=== PATIENT | male | born 1945 | race Caucasian/White ===

== ENCOUNTER 2017-01-04 14:47 | Emergency (ER) | payer MEDICARE, BC ==
--- NOTE | 2017-01-04 14:59 | Emergency Department Record ---
History of Present Illness - General Chief complaint: Dental Stated complaint: JAW PAIN,SWELLING Time Seen by Provider: 01/04/17 14:53 Source: Family ( ), EMS Mode of Arrival: EMS - History of Present Illness Initial comments: patient brought in by EMS and has dental pain. He is scheduled to having an extraction on monday. Dentist is Dr Morgan in [place]. states an oral antibiotic was called in to [facility] today. gave me the history because patient has dementia for 6 years and their primary Dr is Dr. Rocha. states the tooth started to hurt last night. the lower left molar and today he has swelling of the left side of face at the angle of the jaw. PMH hypertension ,RA , Lyme disease MD complaint: Tooth pain - Related Data Home Medications Medication Instructions Recorded Confirmed Last Taken Aspirin [Aspir 81] 81 mg PO DAILY tab 11/09/15 01/04/17 01/03/17 Carvedilol 25 mg PO BID tab 11/09/15 01/04/17 01/04/17 Celecoxib [Celebrex] 200 mg PO DAILY cap 11/09/15 01/04/17 01/04/17 Cholecalciferol (Vitamin D3) 5,000 unit PO DAILY tab 11/09/15 01/04/17 01/03/17 [Vitamin D3] Donepezil HCl [Aricept] 10 mg PO DAILY tab 11/09/15 01/04/17 01/04/17 Duloxetine HCl [Cymbalta] 30 mg PO DAILY cap 11/09/15 01/04/17 01/04/17 Ferrous Sulfate [Iron] 325 mg PO DAILY tab 11/09/15 01/04/17 01/03/17 Losartan Potassium 25 mg PO DAILY tab 11/09/15 01/04/17 01/03/17 Memantine HCl [Namenda] 10 mg PO BID tab 11/09/15 01/04/17 01/04/17 Montelukast Sodium [Singulair] 10 mg PO DAILY tab 11/09/15 01/04/17 01/04/17 Multivitamin [Multi-Vitamin Daily] 1 each PO DAILY tab 11/09/15 01/04/17 Pantoprazole Sodium [Protonix] 40 mg PO BID tab 11/09/15 01/04/17 01/03/17 Hydroxychloroquine Sulfate 200 mg PO BID 01/04/17 01/04/17 01/04/17 [Plaquenil] Allergies Allergy/AdvReac Type Severity Reaction Status Date / Time lisinopril [From Zestril] Allergy PT UNSURE Verified 01/04/17 15:35 OF REACTION Lodine Allergy PT UNSURE Uncoded 01/04/17 15:35 OF REACTION Review of Systems Reviewed: No additional complaints except as noted below Constitutional: Reports: As per HPI. Denies: Chills, Fever, Malaise, Night sweats, Weakness, Weight change Eyes: Reports: As per HPI. Denies: Eye discharge, Eye pain, Photophobia, Vision change ENT: Reports: As per HPI, Dental pain. Denies: Congestion, Ear pain, Epistaxis , Hearing loss, Throat pain Respiratory: Reports: As per HPI. Denies: Cough, Dyspnea, Hemoptysis, Stridor, Wheezes Cardiovascular: Reports: As per HPI. Denies: Arrhythmia, Chest pain, Dyspnea on exertion, Edema, Murmurs, Orthopnea, Palpitations, Paroxysmal nocturnal dyspnea, Rheumatic Fever, Syncope Endocrine: Reports: As per HPI. Denies: Fatigue, Heat or cold intolerance, Polydipsia, Polyuria Gastrointestinal: Reports: As per HPI. Denies: Abdominal pain, Constipation, Diarrhea, Hematemesis, Hematochezia, Melena, Nausea, Vomiting Genitourinary: Reports: As per HPI. Denies: Dysuria, Frequency, Hematuria, Incontinence, Retention, Testicular pain, Testicular mass, Urgency Musculoskeletal: Reports: As per HPI. Denies: Arthralgia, Back pain, Gout, Joint swelling, Myalgia, Neck pain Skin: Reports: As per HPI. Denies: Bruising, Change in color, Change in hair/ nails, Lesions, Pruritus, Rash Neurological: Reports: As per HPI. Denies: Abnormal gait, Confusion, Headache, Numbness, Paresthesias, Seizure, Tingling, Tremors, Vertigo, Weakness Psychiatric: Reports: As per HPI. Denies: Anxiety, Auditory hallucinations, Depression, Homicidal thoughts, Suicidal thoughts, Visual hallucinations Hematological/Lymphatic: Reports: As per HPI. Denies: Anemia, Blood Clots, Easy bleeding, Easy bruising, Swollen glands Past Medical History - SOCIAL HISTORY Smoking Status: Never smoker - RESPIRATORY Hx Respiratory Disorders: Yes Hx Bronchitis: Yes - CARDIOVASCULAR Hx Cardio Disorders: Yes Hx Hypertension: Yes - NEURO Hx Neuro Disorders: Yes Hx Dementia: Yes - GI Hx GI Disorders: Yes Hx Reflux: Yes - Hx Genitourinary Disorders: No - ENDOCRINE Hx Endocrine Disorders: No - MUSCULOSKELETAL Hx Musculoskeletal Disorders: Yes Hx Arthritis: Yes Hx Gout: Yes - PSYCH Hx Psych Problems: Yes Hx Depression: Yes - HEMATOLOGY/ONCOLOGY Hx Hematology/Oncology Disorders: No Family Medical History Hx Alcohol Use: Father, Mother Hx Depression: Brother/Sister Hx Heart Disease: Father Hx HTN: Father, Mother Hx Resp Disorders: Mother Hx Stroke: Mother Physical Exam - General General Appearance: Alert, Oriented x3, Cooperative, Mild distress - Head Head exam: Normal inspection - Eye Eye exam: Normal appearance, PERRL Pupils: Normal accommodation - ENT ENT exam: Mucous membranes moist, Normal external ear exam, TM's normal bilaterally, Other (swelling and pain in the area of theangle of the jaw) Ear exam: Normal external inspection. negative: External canal tenderness Nasal Exam: Normal inspection. negative: Discharge, Sinus tenderness Mouth exam: Normal external inspection, Tongue normal Teeth exam: Other (swelling by left lower molar). negative: Dental caries Throat exam: Normal inspection. negative: Tonsillar erythema, Tonsillar exudate - Neck Neck exam: Normal inspection, Full ROM. negative: Tenderness - Respiratory Respiratory exam: Normal lung sounds bilaterally. negative: Respiratory distress - Cardiovascular Cardiovascular Exam: Regular rate, Normal rhythm, Normal heart sounds - GI/Abdominal GI/Abdominal exam: Soft, Normal bowel sounds. negative: Tenderness - Rectal Rectal exam: Deferred - exam: Deferred - Extremities Extremities exam: Normal inspection, Full ROM, Normal capillary refill. negative: Tenderness - Back Back exam: Reports: Normal inspection, Full ROM. Denies: Muscle spasm, Rash noted, Tenderness - Neurological Neurological exam: Alert, Normal gait, Oriented X3, Reflexes normal - Psychiatric Psychiatric exam: Normal affect, Normal mood - Skin Skin exam: Dry, Intact, Normal color, Warm Medical Decision Making - Lab Data Result diagrams: 01/04/17 15:10 01/04/17 15:10 Disposition Clinical Impression: Dental infection, Toothache Disposition: Home, Self-Care Condition: (1) Good Instructions: Toothache (ED) Additional Instructions: follow up with Dr. Morgan Dentist on monday as scheduled warm water rinses take amoxil ordered by Dr. Morgan return if worse Forms: Patient Portal Access Quality - Quality Measures Quality Measures: N/A - Blood Pressure Screening Blood Pressure Classification: Normal BP Reading Systolic Measurement: 115 Diastolic Measurement: 65 Screening for High Blood Pressure: < Normal BP, F/U Not Required > [G8783] Normal BP Follow-up Interventions: No follow-up required
[2017-01-04 15:19] LABS: HEMATOCRIT 45.6 % (42.0-52.0); HEMOGLOBIN 16.4 gm/dl (14.0-18.0); MEAN CELL VOLUME 84.4 fl (81-97); MEAN CORPUSCULAR HEMOGLOBIN 30.4 pg (27-33); MEAN PLATELET VOLUME 9.8 fl (7.4-10.4); PLATELET COUNT 170 K/uL (130-400); RED CELL DISTRIBUTION WIDTH 12.5 % (11.5-14.5); WHITE BLOOD COUNT W/O DIFF 15.9 K/uL (4.2-12.2)
[2017-01-04] MEDS: 0.9 % SODIUM CHLORIDE 1000ML 1,000 ML IV PRN (15:24)
[2017-01-04] MEDS: CEFTRIAXONE SODIUM 1 GM in 0.9 % SODIUM CHLORIDE 100ML 100 ML IVPB ONE (15:24)
[2017-01-04 15:27] LABS: PLATELET ESTIMATE NORMAL (NORMAL)
[2017-01-04 15:32] LABS: ANION GAP 11.9 (7-16); BLOOD UREA NITROGEN 19 mg/dL (9-20); CARBON DIOXIDE 24.1 mmol/L (22-30); EST GLOMERULAR FILTRATION RATE > 60 ml/min; GLUCOSE,RANDOM 189 mg/dL (70-110)
--- NOTE | 2017-01-04 15:46 | Emergency Department Record ---
History of Present Illness - General Chief complaint: Dental Stated complaint: JAW PAIN,SWELLING Time Seen by Provider: 01/04/17 14:53 Source: Family ( ), EMS, RN notes reviewed Mode of Arrival: EMS - History of Present Illness Initial comments: see previous chart MD complaint: Tooth pain Onset/Timin -: Hour(s) Quality: Aching Context- Dental: Tooth knocked out - Related Data Home Medications Medication Instructions Recorded Confirmed Last Taken Aspirin [Aspir 81] 81 mg PO DAILY tab 11/09/15 01/04/17 01/03/17 Carvedilol 25 mg PO BID tab 11/09/15 01/04/17 01/04/17 Celecoxib [Celebrex] 200 mg PO DAILY cap 11/09/15 01/04/17 01/04/17 Cholecalciferol (Vitamin D3) 5,000 unit PO DAILY tab 11/09/15 01/04/17 01/03/17 [Vitamin D3] Donepezil HCl [Aricept] 10 mg PO DAILY tab 11/09/15 01/04/17 01/04/17 Duloxetine HCl [Cymbalta] 30 mg PO DAILY cap 11/09/15 01/04/17 01/04/17 Ferrous Sulfate [Iron] 325 mg PO DAILY tab 11/09/15 01/04/17 01/03/17 Losartan Potassium 25 mg PO DAILY tab 11/09/15 01/04/17 01/03/17 Memantine HCl [Namenda] 10 mg PO BID tab 11/09/15 01/04/17 01/04/17 Montelukast Sodium [Singulair] 10 mg PO DAILY tab 11/09/15 01/04/17 01/04/17 Multivitamin [Multi-Vitamin Daily] 1 each PO DAILY tab 11/09/15 01/04/17 Pantoprazole Sodium [Protonix] 40 mg PO BID tab 11/09/15 01/04/17 01/03/17 Hydroxychloroquine Sulfate 200 mg PO BID 01/04/17 01/04/17 01/04/17 [Plaquenil] Allergies Allergy/AdvReac Type Severity Reaction Status Date / Time lisinopril [From Zestril] Allergy PT UNSURE Verified 01/04/17 15:35 OF REACTION Lodine Allergy PT UNSURE Uncoded 01/04/17 15:35 OF REACTION Travel Screening - Travel/Exposure Within Last 30 Days Have you traveled within the last 30 days?: No - Travel/Exposure Within Last Year Have you traveled outside the [place] in the last year?: No - Additonal Travel Details Have you been exposed to anyone with a communicable illness?: No - Travel Symptoms Symptom Screening: None Review of Systems Constitutional: Reports: As per HPI. Denies: Chills, Fever, Malaise, Night sweats, Weakness, Weight change Eyes: Reports: As per HPI. Denies: Eye discharge, Eye pain, Photophobia, Vision change ENT: Reports: As per HPI, Dental pain. Denies: Congestion, Ear pain, Epistaxis , Hearing loss, Throat pain Respiratory: Reports: As per HPI. Denies: Cough, Dyspnea, Hemoptysis, Stridor, Wheezes Cardiovascular: Reports: As per HPI. Denies: Arrhythmia, Chest pain, Dyspnea on exertion, Edema, Murmurs, Orthopnea, Palpitations, Paroxysmal nocturnal dyspnea, Rheumatic Fever, Syncope Endocrine: Reports: As per HPI. Denies: Fatigue, Heat or cold intolerance, Polydipsia, Polyuria Gastrointestinal: Reports: As per HPI. Denies: Abdominal pain, Constipation, Diarrhea, Hematemesis, Hematochezia, Melena, Nausea, Vomiting Genitourinary: Reports: As per HPI. Denies: Dysuria, Frequency, Hematuria, Incontinence, Retention, Testicular pain, Testicular mass, Urgency Musculoskeletal: Reports: As per HPI. Denies: Arthralgia, Back pain, Gout, Joint swelling, Myalgia, Neck pain Skin: Reports: As per HPI. Denies: Bruising, Change in color, Change in hair/ nails, Lesions, Pruritus, Rash Neurological: Reports: As per HPI. Denies: Abnormal gait, Confusion, Headache, Numbness, Paresthesias, Seizure, Tingling, Tremors, Vertigo, Weakness Psychiatric: Reports: As per HPI. Denies: Anxiety, Auditory hallucinations, Depression, Homicidal thoughts, Suicidal thoughts, Visual hallucinations Hematological/Lymphatic: Reports: As per HPI. Denies: Anemia, Blood Clots, Easy bleeding, Easy bruising, Swollen glands Past Medical History - SOCIAL HISTORY Smoking Status: Never smoker - RESPIRATORY Hx Respiratory Disorders: Yes Hx Bronchitis: Yes - CARDIOVASCULAR Hx Cardio Disorders: Yes Hx Hypertension: Yes - NEURO Hx Neuro Disorders: Yes Hx Dementia: Yes - GI Hx GI Disorders: Yes Hx Reflux: Yes - Hx Genitourinary Disorders: No - ENDOCRINE Hx Endocrine Disorders: No - MUSCULOSKELETAL Hx Musculoskeletal Disorders: Yes Hx Arthritis: Yes Hx Gout: Yes - PSYCH Hx Psych Problems: Yes Hx Depression: Yes - HEMATOLOGY/ONCOLOGY Hx Hematology/Oncology Disorders: No Family Medical History Hx Alcohol Use: Father, Mother Hx Depression: Brother/Sister Hx Heart Disease: Father Hx HTN: Father, Mother Hx Resp Disorders: Mother Hx Stroke: Mother Course Vital Signs 01/04/17 14:52 Pulse Rate 58 L Respiratory 16 Rate Blood Pressure 115/65 Pulse Ox 97 - Reevaluation(s) Reevaluation #1: discussed case with DR. Morgan 01/04/17 15:55 Medical Decision Making - Lab Data Result diagrams: 01/04/17 15:10 01/04/17 15:10 Lab Results 01/04/17 Range/Units 15:10 WBC 15.9 H (4.2-12.2) K/uL RBC 5.40 (4.40-5.70) M/uL Hgb 16.4 (14.0-18.0) gm/dl Hct 45.6 (42.0-52.0) % MCV 84.4 (81-97) fl MCH 30.4 (27-33) pg MCHC 36.0 (32-36) g/dl RDW 12.5 (11.5-14.5) % Plt Count 170 (130-400) K/uL MPV 9.8 (7.4-10.4) fl Neutrophils % 82.0 H (47-80) % Eosinophils % Not Reportable Basophils % Not Reportable Lymphocytes 10.0 L (16-45) % Monocytes 8.0 (0-9) % Platelet Estimate Normal (NORMAL) RBC Morphology Normal Disposition Clinical Impression: Dental infection, Toothache Disposition: Home, Self-Care Condition: (1) Good Instructions: Toothache (ED) Additional Instructions: follow up with Dr. Morgan Dentist on monday as scheduled warm water rinses take amoxil ordered by Dr. Morgan return if worse Forms: Patient Portal Access Time of Disposition: 15:57 Quality - Quality Measures Quality Measures: N/A - Blood Pressure Screening Blood Pressure Classification: Normal BP Reading Systolic Measurement: 115 Diastolic Measurement: 65 Screening for High Blood Pressure: < Normal BP, F/U Not Required > [G8783] Normal BP Follow-up Interventions: No follow-up required
== END 2017-01-04 16:15 | disposition home or self-care (01) ==
LOC: ER 14:47
DX: K04.7 Periapical abscess without sinus (principal); I10 Essential (primary) hypertension; F03.90 Unspecified dementia, unspecified severity, without behavioral disturbance, psychotic disturbance, mood disturbance, and anxiety
CPT/HCPCS: 80048; 85027; 96365; 99284

== ENCOUNTER 2017-11-19 18:14 | Emergency (ER) | payer MEDICARE, BC ==
[2017-11-19] MEDS ORDERED: ONDANSETRON HCL IV 4 MG/2 ML VIAL IVP ONE ×2 (18:37→20:41)
--- NOTE | 2017-11-19 18:41 | Emergency Department Record ---
History of Present Illness - General Chief complaint: Weakness Stated complaint: WEAK,TIRED,VOMITING Time Seen by Provider: 11/19/17 18:36 Source: Patient Mode of Arrival: Ambulatory Limitations: No limitations - History of Present Illness Initial comments: 72 yo male presents to ED for evaluation of abdominal pain (no resolved). vomiting x 1 90 minutes ago, and worsening confusion for the past 1 week per the patient's SO. Patient has a history of dementia. SO denies fevers, chills , or recent illness. History is other limited by dementia Onset/Timin -: Week(s) Location: Generalized Severity: Moderate Consistency: Intermittent Improves with: None Worsens with: None Associated Symptoms: Denies other symptoms - Cassidy Coma Scale Eye Response: (4) Open spontaneously Motor Response: (6) Obeys commands Verbal Response: (4) Confused conversation Cassidy Total: 14 - Related Data Previous Rx's Medication Instructions Recorded Ondansetron [Zofran Odt] 4 mg PO Q8H PRN #15 tab.rapdis 11/19/17 Allergies Allergy/AdvReac Type Severity Reaction Status Date / Time lisinopril [From Zestril] Allergy PT UNSURE Verified 11/19/17 18:24 OF REACTION Lodine AdvReac Mild PT UNSURE Uncoded 04/12/17 13:19 OF REACTION Travel Screening - Travel/Exposure Within Last 30 Days Have you traveled within the last 30 days?: No - Travel/Exposure Within Last Year Have you traveled outside the [place] in the last year?: No - Additonal Travel Details Have you been exposed to anyone with a communicable illness?: No - Travel Symptoms Symptom Screening: None Review of Systems ROS unobtainable: Due to mental status Gastrointestinal: Reports: Abdominal pain, Vomiting Genitourinary: Denies: Retention Neurological: Reports: Confusion Past Medical History - SOCIAL HISTORY Smoking Status: Never smoker Alcohol Use: None Drug Use: None - RESPIRATORY Hx Respiratory Disorders: Yes Hx Bronchitis: Yes - CARDIOVASCULAR Hx Cardio Disorders: Yes Hx Hypertension: Yes - NEURO Hx Neuro Disorders: Yes Hx Dementia: Yes - GI Hx GI Disorders: Yes Hx Reflux: Yes - Hx Genitourinary Disorders: No Hx Prostate Problems: Yes - ENDOCRINE Hx Endocrine Disorders: No - MUSCULOSKELETAL Hx Musculoskeletal Disorders: Yes Hx Arthritis: Yes Hx Gout: Yes - PSYCH Hx Psych Problems: Yes Hx Depression: Yes - HEMATOLOGY/ONCOLOGY Hx Hematology/Oncology Disorders: No Family Medical History Any Significant Family History?: Yes Hx Alcohol Use: Father, Mother Hx Depression: Brother/Sister Hx Heart Disease: Father Hx HTN: Father, Mother Hx Resp Disorders: Mother Hx Stroke: Mother Physical Exam - General General Appearance: Alert, Cooperative, No acute distress Limitations: No limitations - Head Head exam: Atraumatic, Normocephalic, Normal inspection Head exam detail: negative: Abrasion, Contusion, Sandoval's sign, General tenderness, Hematoma, Laceration - Eye Eye exam: Normal appearance. negative: Conjunctival injection, Periorbital swelling, Periorbital tenderness, Scleral icterus - ENT Ear exam: negative: Auricular hematoma, Auricular trauma Nasal Exam: negative: Active bleeding, Discharge, Dried blood, Foreign body Mouth exam: negative: Drooling, Laceration, Muffled voice, Tongue elevation - Neck Neck exam: Normal inspection. negative: Meningismus, Tenderness - Respiratory Respiratory exam: Normal lung sounds bilaterally. negative: Respiratory distress, Rhonchi, Stridor, Wheezes - Cardiovascular Cardiovascular Exam: Regular rate, Normal rhythm, Normal heart sounds - GI/Abdominal GI/Abdominal exam: Soft, Other (Midline hernia defect is present). negative: Distended, Rebound, Rigid, Tenderness - Rectal Rectal exam: Deferred - exam: Deferred - Extremities Extremities exam: Normal inspection. negative: Calf tenderness, Pedal edema, Tenderness - Back Back exam: Denies: CVA tenderness (R), CVA tenderness (L) - Neurological Neurological exam: Alert, Normal gait. negative: Motor sensory deficit - Psychiatric Psychiatric exam: Normal affect, Normal mood - Skin Skin exam: Normal color. negative: Abrasion Type of lesion: negative: abrasion Course Vital Signs 11/19/17 18:26 Temperature 97.6 F Pulse Rate 54 L Respiratory 18 Rate Blood Pressure 124/76 Pulse Ox 97 - Reevaluation(s) Reevaluation #1: 11/19/17 19:33 Labs were reviewed, WBC 14.6, 88% neutrophils. Labs are otherwise grossly unremarkable for an acute process. Reevaluation #2: 11/19/17 20:37 CT Abdomen/Pelvis: Complex cyst left kidney (2) peripheral lesions near the cyst, ? maignancy vs. cyst-Recommend MRI for further evaluation Prostatic enlargement Sclerotic densities of the right Ilium, bone islands vs. malignancy not excluded. Patient was updated on all results, reports that he is feeling much improved. SO reports that he is more alert, appears stable for discharge at this time. Medical Decision Making - Lab Data Result diagrams: 11/19/17 18:45 11/19/17 18:45 Disposition Disposition: Discharge Clinical Impression: Vomiting Qualifiers: Vomiting type: unspecified Vomiting Intractability: non-intractable Nausea presence: unspecified Qualified Code(s): R11.10 - Vomiting, unspecified Dementia Qualifiers: Dementia type: unspecified type Dementia behavioral disturbance: without behavioral disturbance Qualified Code(s): F03.90 - Unspecified dementia without behavioral disturbance Disposition: Home, Self-Care Condition: (2) Stable Instructions: Acute Nausea and Vomiting (ED) Additional Instructions: Return to ED if your symptoms worsen or if you have any concerns. Zofran as directed. Follow-up with your family doctor in 3-5 days as directed. MRI suggested for further evaluation of left renal lesions and lesions in the right ilium. Prescriptions: Ondansetron [Zofran Odt] 4 mg PO Q8H PRN #15 tab.rapdis PRN Reason: Nausea/Vomiting Forms: Patient Portal Access Time of Disposition: 20:40 Quality - Quality Measures Quality Measures: N/A - Blood Pressure Screening Does Patient Have Any of the Following: No Blood Pressure Classification: Pre-Hypertensive BP Reading Systolic Measurement: 124 Diastolic Measurement: 76 Screening for High Blood Pressure: < Pre-Hypertensive BP, F/U Documented > [ G8950] Pre-Hypertensive Follow-up Interventions: Referral to alternative/primary care provider.
[2017-11-19] MEDS ORDERED: 0.9 % SODIUM CHLORIDE 1000ML 1,000 ML IV SCH (18:45)
[2017-11-19 18:56] LABS: HEMATOCRIT 48.8 % (42.0-52.0); HEMOGLOBIN 17.1 gm/dl (14.0-18.0); MEAN CELL VOLUME 87.5 fl (81-97); MEAN CORPUSCULAR HEMOGLOBIN 30.6 pg (27-33); MEAN PLATELET VOLUME 9.5 fl (7.4-10.4); PLATELET COUNT 226 K/uL (130-400); RED BLOOD COUNT 5.58 M/uL (4.40-5.70); RED CELL DISTRIBUTION WIDTH 12.4 % (11.5-14.5); WHITE BLOOD COUNT W/O DIFF 14.6 K/uL (4.2-12.2)
[2017-11-19 19:08] LABS: BLOOD UREA NITROGEN 17 mg/dL (8-23); CREATININE 0.7 mg/dL (0.7-1.2); EST GLOMERULAR FILTRATION RATE > 60 mL/min
[2017-11-19 19:09] LABS: TOTAL PROTEIN 7.1 g/dL (6.6-8.7)
[2017-11-19 19:11] LABS: GLUCOSE,RANDOM 150 mg/dL (74-109)
[2017-11-19 19:13] LABS: PLATELET ESTIMATE NORMAL (NORMAL)
[2017-11-19 19:14] LABS: ALB/GLOB RATIO 1.8 (1.1-1.8); ALBUMIN 4.6 g/dL (4.0-5.0); ALKALINE PHOSPHATASE 47 U/L (40-129); ALT/SGPT 17 U/L (<41); AST/SGOT 22 U/L (10.0-50.0); LIPASE 25 U/L (13-60)
[2017-11-19 20:09] LABS: URINE APPEARANCE CLEAR; URINE BILIRUBIN NEGATIVE (NEGATIVE); URINE BLOOD NEGATIVE (NEGATIVE); URINE COLOR YELLOW; URINE GLUCOSE (UA) NEGATIVE (NEGATIVE); URINE KETONE NEGATIVE (NEGATIVE); URINE LEUKOCYTE ESTERASE NEGATIVE (NEGATIVE); URINE NITRITE NEGATIVE (NEGATIVE); URINE PROTEIN NEGATIVE (NEGATIVE); URINE UROBILINOGEN 0.2 E.U./dL (0.20 - 1.00)
[2017-11-19] MEDS ORDERED: ONDANSETRON 4 MG ODT TABLET SL ONE (20:53)
--- NOTE | 2017-11-21 14:39 | CT SCAN REPORT ---
EXAM: CT OF THE ABDOMEN AND PELVIS HISTORY: VOMITING, ABDOMINAL PAIN. TECHNIQUE: CT of the abdomen and pelvis was performed following intravenous contrast administration. 95 ml of Omnipaque 300 contrast was used for this exam. Comparison: None. FINDINGS: The lung bases are unremarkable. There are coronary artery calcifications. No pericardial or pleural effusion. The liver and spleen are unremarkable. No pancreatic mass or inflammatory change. The bile ducts are not dilated. There are no calcified gallstones. No adrenal lesion seen. There is a lesion in the right kidney which appears to predominantly represent a cyst with septations measuring about 3 cm in size. Two enhancing nodules are seen along the periphery of the lesion both measuring approximately 1.4 cm in size. A tiny cyst is seen in the lower left kidney. The kidneys otherwise are unremarkable. There are atherosclerotic changes in the abdominal aorta. No aneurysm. No periaortic mass or adenopathy. There are no dilated bowel loops. No pelvic mass, abscess, or adenopathy. No free air or free fluid. The prostate is enlarged. A 1 cm sclerotic density is present in the right ileum. No fracture or destructive process identified. IMPRESSION: 1. NO ACUTE ABDOMINAL OR PELVIC PROCESS IDENTIFIED. 2. THERE IS A LEFT RENAL LESION CONSISTING MOSTLY OF A COMPLEX CYST. TWO PERIPHERAL ENHANCING AREAS, HOWEVER, ARE PRESENT. MALIGNANCY NOT EXCLUDED. MRI IS SUGGESTED FOR FURTHER ASSESSMENT. 3. PROSTATIC ENLARGEMENT. 4. 1 CM SCLEROTIC DENSITY IN THE RIGHT ILEUM MAY REPRESENT A BONE ISLAND. SCLEROTIC METASTASIS IS DIFFICULT TO EXCLUDE. JOB NUMBER: [id number] MTDD
== END 2017-11-19 21:01 | disposition home or self-care (01) ==
LOC: ER 18:14
DX: R11.10 Vomiting, unspecified (principal); R10.84 Generalized abdominal pain; R53.1 Weakness; F03.90 Unspecified dementia, unspecified severity, without behavioral disturbance, psychotic disturbance, mood disturbance, and anxiety; I10 Essential (primary) hypertension
CPT/HCPCS: 99284 ×2; 96374; 83690; 80053; 81003; 85027; 74177; Q9967; J2405; J7030